=== PATIENT | female | born 1935 | race Caucasian/White ===

== ENCOUNTER 2020-08-20 06:55 | Outpatient (CLI) | payer MEDICARE, BC ==
--- NOTE | 2020-08-20 14:23 | RAD ---
EXAM: Two views chest PROVIDED CLINICAL HISTORY: Preoperative evaluation. COMPARISON: None FINDINGS: Cardiac silhouette and pulmonary vasculature are within normal limits. Linear bibasilar densities ar e seen which may represent atelectasis and/or scarring. Symmetric biapical pleural thickening is present which appears partially calcified. Lungs are otherwise clear. Mild elevation right hemidiaphr agm is present. Degenerative changes are seen in the spine. IMPRESSION: Linear bibasilar atelectasis and/or scarring. No acute cardiopulmonary process is identified..
[2020-08-20 15:10] LABS: #Eosinphils 0.1 10x3/uL (0.0-0.5); #Monocytes 0.6 10x3/uL (0.0-1.1); #Neutrophils 8.1 10x3/uL (1.5-8.4); %Basophils 0.3 % (0.0-2.0); %Eosinophils 0.8 % (0.0-6.0); %Lymphocytes 8.7 % (18.0-47.0); %Neutrophils 83.7 % (40.0-75.0); Hemoglobin 10.3 g/dL (12.0-16.0); Mean Corpuscular HGB CONC 32.2 G/DL (32.0-36.0); Mean Corpuscular Hemoglobin 28.9 PG (27.0-33.0); Mean Corpuscular Volume 89.9 fl (80.0-100.0); Mean Platelet Volume 9.1 fl (7.4-10.4); Platelet Count 460 10x3/uL (130-400); RBC Distribution Width 14.6 % (11.5-14.5); Red Blood Cell (RBC) Count 3.56 10x6/uL (3.90-5.20); White Blood Cell (WBC) Count 9.7 10x3/uL (4.5-11.0)
[2020-08-20 15:25] LABS: Anion Gap 18 mmol/L (10-20); BUN (Urea Nitrogen) 55 mg/dL (9.8-20.1); Calc. Creatinine Clearance 0 mL/min (70-130); Calcium 9.5 mg/dL (7.8-10.44); Carbon Dioxide 24 mmol/L (23-31); Chloride 92 mmol/L (98-107); Estimated GFR-MDRD 7; Glucose 94 mg/dL (83-110); Potassium 4.7 mmol/L (3.5-5.1); Sodium 129 mmol/L (136-145)
[2020-08-21 14:35] LABS: SARS-CoV-2 MS2 Positive; SARS-CoV-2 N Gene Negative; SARS-CoV-2 S Gene Negative; SARS-CoV-2 by NAA Not Detected (NotDetected); SARS-CoV-2 orf1ab Negative
== END 2020-08-20 06:56 | disposition home or self-care (01) ==
LOC: LABBT 06:55
PROVIDERS: ATTEND Surgery
DX: Z01.818 Encounter for other preprocedural examination (principal); Z20.828 Contact with and (suspected) exposure to other viral communicable diseases; N18.6 End stage renal disease
CPT/HCPCS: 71046; 80048; 85025; U0003; 87635

== ENCOUNTER 2022-02-10 10:39 | Inpatient (IN) | payer MEDICARE, BC ==
[~2022-02-10 10:39] MED LIST: Heparin 10,000 UNITS/ 10 ML VIAL ONE
[2022-02-10 11:23] LABS: Bacteria/HPF None Seen HPF (None Seen); Bilirubin Negative (Negative); Blood, Urine Trace (Negative); Clarity Clear (Clear); Glucose, Urine (Dipstick) Normal (Negative); Ketone, Urine Negative (Negative); Leukocyte Negative Leu/uL (Negative); Nitrite Negative (Negative); Protein, Urine (Dipstick) 100 mg/dL (Neg-Trace); Specific Gravity, Urine 1.011 (1.002-1.036); Squamous Epithelial None Seen HPF (0-3); Urobilinogen Normal mg/dL (Less than 2); pH, Urine 7.5 (5.0-9.0)
[2022-02-10 11:48] LABS: #Lymphocytes 0.3 thou/uL (1.20-3.40); #Monocytes 0.7 thou/uL (0.11-0.59); #Neutrophils 10.8 thou/uL (1.40-6.50); %Lymphocytes 2.2 % (21.0-51.0); %Monocytes 5.7 % (0.0-10.0); Hemoglobin 14.6 g/dL (12.0-16.0); Mean Corpuscular HGB CONC 32.3 g/dL (32.0-36.0); Mean Corpuscular Hemoglobin 32.3 pg (27.0-31.0); Mean Corpuscular Volume 99.9 fL (78.0-98.0); Mean Platelet Volume 6.6 fL (7.4-10.4); Platelet Count 166 thou/uL (130-400); RBC Distribution Width 13.1 % (11.5-14.5); Red Blood Cell (RBC) Count 4.53 mill/uL (4.20-5.40); White Blood Cell (WBC) Count 11.7 thou/uL (4.8-10.8)
[2022-02-10 12:13] LABS: ALT (SGPT) 9 U/L (8-55); AST (SGOT) 21 U/L (5-34); Albumin 4.1 g/dL (3.4-4.8); Alkaline Phosphatase 112 U/L (40-110); Anion Gap 19 mmol/L (10-20); BUN (Urea Nitrogen) 47 mg/dL (9.8-20.1); Bilirubin, Total 0.7 mg/dL (0.2-1.2); Calc. Creatinine Clearance 0 mL/min (70-130); Calcium 9.5 mg/dL (7.8-10.44); Carbon Dioxide 18 mmol/L (23-31); Chloride 99 mmol/L (98-107); Globulin 3.3 g/dL (2.4-3.5); Glucose 131 mg/dL (83-110); Lipase 37 U/L (8-78); Potassium 4.2 mmol/L (3.5-5.1); Protein, Total 7.4 g/dL (5.8-8.1); Sodium 132 mmol/L (136-145)
[2022-02-10] MEDS ORDERED: Morphine 4 MG/ML VIAL ONE ×2 (14:35→14:39)
[2022-02-10] MEDS ORDERED: Ondansetron PF 4 MG/2 ML Vial ONE ×2 (14:35→14:44)
[2022-02-10] MEDS ORDERED: Ketorolac Tromethamine 30 MG/ML VIAL ONE (14:38)
[2022-02-10] MEDS ORDERED: Acetaminophen 500 MG TAB ONE (14:40)
[2022-02-10] MEDS ORDERED: Acetaminophen 325 MG TAB PO PRN (15:27)
[2022-02-10] MEDS ORDERED: Acetaminophen/Codeine 30-300mg Tablet PO PRN (16:34)
[2022-02-10] MEDS ORDERED: Acetaminophen/Codeine 30-300mg Tablet PO SCH (16:45)
[2022-02-10] MEDS ORDERED: Propofol 1,000 MG/100 ML VIAL IV ONE (18:49)
[2022-02-10] MEDS: fentaNYL Citrate-0.9 % NaCl/PF 100 ML IV SCH (19:09)
[2022-02-10] MEDS ORDERED: Morphine 4 MG/ML VIAL SLOW IVP PRN (19:15)
[2022-02-10] MEDS ORDERED: Fentanyl BOLUS 250 ML IVPB PRN (19:15)
[2022-02-10] MEDS ORDERED: DISCONTINUE PREVIOUS NARCOTIC PAIN MEDICATIONS AND BENZODIAZEPINES FS SCH (19:15)
[2022-02-10] MEDS ORDERED: Propofol BOLUS 1,000 MG/100 ML VIAL IV PRN (19:15)
[2022-02-10] MEDS ORDERED: Propofol 1,000 MG/100 ML VIAL IV PRN (19:15)
[2022-02-10 19:21] LABS: ALT (SGPT) 322 U/L (8-55); AST (SGOT) 369 U/L (5-34); Albumin 3.4 g/dL (3.4-4.8); Alkaline Phosphatase 98 U/L (40-110); Anion Gap 21 mmol/L (10-20); BUN (Urea Nitrogen) 13 mg/dL (9.8-20.1); Bilirubin, Total 0.8 mg/dL (0.2-1.2); Calc. Creatinine Clearance 0 mL/min (70-130); Calcium 12.4 mg/dL (7.8-10.44); Carbon Dioxide 16 mmol/L (23-31); Chloride 104 mmol/L (98-107); Globulin 2.4 g/dL (2.4-3.5); Glucose 265 mg/dL (83-110); Potassium 3.7 mmol/L (3.5-5.1); Protein, Total 5.8 g/dL (5.8-8.1); Sodium 137 mmol/L (136-145)
[2022-02-10 19:27] LABS: Anisocytosis SLIGHT = 6-15 cells (100X) (0-5/hpf); Band 19 % (5-11); Hemoglobin 12.1 g/dL (12.0-16.0); Lymphocytes 12 % (21-51); MDiff Complete? YES; Mean Corpuscular HGB CONC 31.6 g/dL (32.0-36.0); Mean Corpuscular Hemoglobin 31.9 pg (27.0-31.0); Mean Platelet Volume 7.1 fL (7.4-10.4); Monocytes 5 % (0-10); Neutrophil 64 % (42-75); Platelet Count 239 thou/uL (130-400); RBC Distribution Width 13.1 % (11.5-14.5); Red Blood Cell (RBC) Count 3.78 mill/uL (4.20-5.40); White Blood Cell (WBC) Count 29.6 thou/uL (4.8-10.8)
[2022-02-10 19:28] LABS: Troponin I 2.035 ng/mL (< 0.028)
[2022-02-10 19:32] LABS: Actual Bicarbonate (HCO3a) 15.3 mEq/L (22-28); Base Excess (BEa) -8.3 mEq/L (-2.0 to +3.0); CO2 Tension 26.5 mmHg (35.0-45.0); Calcium, Ionized (arterial) 1.25 mmol/L (1.12-1.30); Carboxyhemoglobin (COHb) 0.3 gm% (0.0-3.0); Hemoglobin (Hb) 12.1 g/dL (12.0-16.0); O2 Tension (PaO2), arterial 134.1 mmHg (> 60.0); Potassium - ABG Lab 3.41 mmol/L (3.70-5.30); pH, Arterial 7.38 (7.35-7.45)
[2022-02-10 19:44] LABS: ALV-art Gradient 545.775 mmHg (0-20); Puncture Site LRA
[2022-02-10 19:50] LABS: Magnesium 2.3 mg/dL (1.6-2.6); Phosphorus 4.5 mg/dL (2.3-4.7)
[2022-02-10 20:12] VITALS: BMI 23.8
[2022-02-10] MEDS ORDERED: Magnesium 2 GM/50 ML(in water) 2 GM in Premix Bag 1 BAG IVPB SCH (20:45)
[2022-02-10] MEDS ORDERED: Aspirin 325 MG TAB PO SCH (20:45)
[2022-02-10] MEDS ORDERED: BUPRENORPHINE 5 MCG TD SCH (21:00)
[2022-02-10] MEDS ORDERED: Amiodarone 150 MG, Admixture Fee 1 EACH in Dextrose 5% in Water 100 ML IVPB SCH (21:30)
[2022-02-10] MEDS: Amiodarone 450 MG in Dextrose 5% in Water 250 ML IVPB SCH (21:46)
[2022-02-10 21:47] LABS: Troponin I 2.562 ng/mL (< 0.028)
[2022-02-10 21:48] LABS: ALT (SGPT) 395 U/L (8-55); AST (SGOT) 518 U/L (5-34); Alkaline Phosphatase 107 U/L (40-110); Anion Gap 19 mmol/L (10-20); BUN (Urea Nitrogen) 22 mg/dL (9.8-20.1); Calc. Creatinine Clearance 13 mL/min (70-130); Calcium 9.9 mg/dL (7.8-10.44); Carbon Dioxide 22 mmol/L (23-31); Chloride 100 mmol/L (98-107); Globulin 3.2 g/dL (2.4-3.5); Glucose 199 mg/dL (83-110); Magnesium 1.9 mg/dL (1.6-2.6); Phosphorus 3.5 mg/dL (2.3-4.7); Potassium 3.9 mmol/L (3.5-5.1); Protein, Total 7.2 g/dL (5.8-8.1); Sodium 137 mmol/L (136-145)
[2022-02-10] MEDS ORDERED: Heparin 10,000 UNITS/ 10 ML VIAL SLOW IVP SCH (23:30)
[2022-02-10] MEDS ORDERED: Heparin 25,000 units/D5W 500 ML IVPB SCH (23:30)
[2022-02-11 00:23] LABS: Hemoglobin 12.8 g/dL (12.0-16.0); Platelet Count 195 thou/uL (130-400)
[2022-02-11 00:45] LABS: Troponin I 3.913 ng/mL (< 0.028)
[2022-02-11] MEDS ORDERED: Nitroglycerin 50 MG/250 ML BOT 250 ML IVPB SCH (02:45)
[2022-02-11 07:19] LABS: Albumin 3.3 g/dL (3.4-4.8)
[2022-02-11 07:20] LABS: Chloride 98 mmol/L (98-107); Potassium 4.8 mmol/L (3.5-5.1); Sodium 132 mmol/L (136-145)
[2022-02-11 07:21] LABS: Glucose 269 mg/dL (83-110)
[2022-02-11 07:22] LABS: Anion Gap 20 mmol/L (10-20); Carbon Dioxide 19 mmol/L (23-31); Globulin 3.2 g/dL (2.4-3.5); Protein, Total 6.5 g/dL (5.8-8.1)
[2022-02-11 07:23] LABS: Bilirubin, Total 0.6 mg/dL (0.2-1.2)
[2022-02-11 07:24] LABS: Actual Bicarbonate (HCO3a) 19.9 mEq/L (22-28); Base Excess (BEa) -2.2 mEq/L (-2.0 to +3.0); CO2 Tension 26.8 mmHg (35.0-45.0); Calcium, Ionized (arterial) 1.16 mmol/L (1.12-1.30); Carboxyhemoglobin (COHb) 0.5 gm% (0.0-3.0); O2 Tension (PaO2), arterial 98.8 mmHg (> 60.0); Potassium - ABG Lab 4.08 mmol/L (3.70-5.30); pH, Arterial 7.49 (7.35-7.45)
[2022-02-11 07:24] LABS: Alkaline Phosphatase 83 U/L (40-110); Calc. Creatinine Clearance 10 mL/min (70-130)
[2022-02-11 07:25] LABS: BUN (Urea Nitrogen) 25 mg/dL (9.8-20.1)
[2022-02-11 07:25] LABS: Puncture Site LRA
[2022-02-11 07:26] LABS: AST (SGOT) 263 U/L (5-34)
[2022-02-11 07:27] LABS: ALT (SGPT) 268 U/L (8-55); Magnesium 2.6 mg/dL (1.6-2.6)
[2022-02-11 07:40] LABS: Band 29 % (5-11); Hemoglobin 11.6 g/dL (12.0-16.0); Lymphocytes 2 % (21-51); MDiff Complete? YES; Macrocytosis MODERATE=16-30 cells (100X) (0-5/hpf); Mean Corpuscular HGB CONC 32.3 g/dL (32.0-36.0); Mean Corpuscular Hemoglobin 32.7 pg (27.0-31.0); Mean Platelet Volume 7.2 fL (7.4-10.4); Metamyelocyte 6 % (0-0); Monocytes 4 % (0-10); Neutrophil 59 % (42-75); Platelet Count 179 thou/uL (130-400); Platelet Morphology Comment Appears Adequate; RBC Distribution Width 13.1 % (11.5-14.5); Red Blood Cell (RBC) Count 3.53 mill/uL (4.20-5.40)
[2022-02-11] MEDS: Pantoprazole 40 MG VIAL IVP SCH ×2 (09:04→09:06)
[2022-02-11] MEDS: Amiodarone 450 MG in Dextrose 5% in Water 250 ML IVPB SCH ×2 (09:35→23:09)
[2022-02-11] MEDS ORDERED: EPINEPHrine 1 MG/10 ML Abboject SYRINGE ONE (10:30)
[2022-02-11] MEDS ORDERED: Magnesium Sulfate In Water 4 GM in Premix Bag 1 BAG IVPB SCH (11:00)
[2022-02-11] MEDS ORDERED: Magnesium 2 GM/50 ML(in water) 2 GM in Premix Bag 1 BAG IVPB SCH (11:15)
[2022-02-11 12:18] LABS: SARS-CoV-2 PCR by NAA Not Detected (NotDetected)
[2022-02-11] MEDS ORDERED: Amiodarone 200 MG TAB PER TUBE SCH (13:45)
[2022-02-11] MEDS: fentaNYL Citrate-0.9 % NaCl/PF 100 ML IV SCH (14:48)
[2022-02-11] MEDS: Amiodarone 200 MG TAB PER TUBE SCH (20:31)
[2022-02-11] MEDS: Acetaminophen 325 MG TAB PER TUBE PRN (21:17)
[2022-02-12 04:25] LABS: #Lymphocytes 0.6 thou/uL (1.20-3.40); #Neutrophils 7.7 thou/uL (1.40-6.50); %Basophils 0.3 % (0.0-1.0); %Eosinophils 0.1 % (0.0-10.0); %Lymphocytes 6.7 % (21.0-51.0); %Neutrophils 81.9 % (42.0-75.0); Hemoglobin 11.4 g/dL (12.0-16.0); Mean Corpuscular HGB CONC 31.7 g/dL (32.0-36.0); Mean Corpuscular Hemoglobin 32.9 pg (27.0-31.0); Mean Platelet Volume 8.3 fL (7.4-10.4); Platelet Count 139 thou/uL (130-400); RBC Distribution Width 13.4 % (11.5-14.5); Red Blood Cell (RBC) Count 3.47 mill/uL (4.20-5.40); White Blood Cell (WBC) Count 9.4 thou/uL (4.8-10.8)
[2022-02-12 04:49] LABS: Critical Call Chem Troponin I RESULT DECREASING; Troponin I 1.754 ng/mL (< 0.028)
[2022-02-12] MEDS: Lorazepam 2 MG/ML VIAL SLOW IVP PRN ×2 (07:53→15:30)
[2022-02-12] MEDS: fentaNYL Citrate-0.9 % NaCl/PF 100 ML IV SCH (08:12)
[2022-02-12] MEDS ORDERED: Heparin 10,000 UNITS/ 10 ML VIAL ONE (08:42)
[2022-02-12] MEDS: Pantoprazole 40 MG VIAL IVP SCH (08:57)
[2022-02-12] MEDS: Amiodarone 200 MG TAB PER TUBE SCH (08:57)
[2022-02-12] MEDS: Acetaminophen 325 MG TAB PER TUBE PRN (11:56)
[2022-02-12 14:12] VITALS: BP 109/50
[2022-02-12 15:58] LABS: Hemoglobin 11.6 g/dL (12.0-16.0); Mean Corpuscular HGB CONC 32.1 g/dL (32.0-36.0); Mean Corpuscular Hemoglobin 32.3 pg (27.0-31.0); Mean Platelet Volume 7.3 fL (7.4-10.4); Platelet Count 140 thou/uL (130-400); RBC Distribution Width 13.2 % (11.5-14.5); Red Blood Cell (RBC) Count 3.61 mill/uL (4.20-5.40); White Blood Cell (WBC) Count 2.2 thou/uL (4.8-10.8)
[2022-02-12 16:12] LABS: Band 21 % (5-11); Eosinophils 1 % (0-10); Lymphocytes 11 % (21-51); MDiff Complete? YES; Macrocytosis SLIGHT = 6-15 cells (100X) (0-5/hpf); Metamyelocyte 3 % (0-0); Monocytes 4 % (0-10); Neutrophil 59 % (42-75); Platelet Morphology Comment Appears Adequate; Polychromasia SLIGHT = 2-3 cells (100X) (0-2/hpf); Reactive Lymphocytes 1 % (0-10)
[2022-02-12 16:42] VITALS: TEMP 98.7
[2022-02-12] MEDS ORDERED: Morphine 4 MG/ML VIAL SLOW IVP PRN (17:36)
[2022-02-12] MEDS ORDERED: Lorazepam 2 MG/ML VIAL SLOW IVP PRN (17:37)
== END 2022-02-12 18:02 | disposition expired ==
LOC: ERS 10:39 → T4-B 14:42 → CCU 18:41 → OBSVTOIN 18:45 → CCU 02-12 13:25
PROVIDERS: ADMIT Student in an Organized Health Care Education/Training Program; ATTEND Student in an Organized Health Care Education/Training Program
PROC: 5A12012 Performance of Cardiac Output, Single, Manual (ICD-10-PCS; principal; 2022-02-10)
PROC: 0BH18EZ Insertion of Endotracheal Airway into Trachea, Via Natural or Artificial Opening Endoscopic (ICD-10-PCS; 2022-02-10)
PROC: 5A1D70Z Performance of Urinary Filtration, Intermittent, Less than 6 Hours Per Day (ICD-10-PCS; 2022-02-12)
DX: I21.4 Non-ST elevation (NSTEMI) myocardial infarction (principal); N18.6 End stage renal disease; J96.00 Acute respiratory failure, unspecified whether with hypoxia or hypercapnia; Z51.5 Encounter for palliative care; Z66 Do not resuscitate; I47.2 Ventricular tachycardia; Z20.822 Contact with and (suspected) exposure to COVID-19; D63.1 Anemia in chronic kidney disease; E03.9 Hypothyroidism, unspecified; G62.9 Polyneuropathy, unspecified; R94.31 Abnormal electrocardiogram [ECG] [EKG]; G89.29 Other chronic pain; I46.8 Cardiac arrest due to other underlying condition; Z99.2 Dependence on renal dialysis; Z90.710 Acquired absence of both cervix and uterus; Z90.89 Acquired absence of other organs; Z86.69 Personal history of other diseases of the nervous system and sense organs; Z87.891 Personal history of nicotine dependence
CPT/HCPCS: 36415; 36416; 36600; 71045; 74177; 80053; 81003; 81015; 82805; 83605; 83690; 83735; 84100; 84443; 84484; 85025; 85730; 90935; 93005; 93010; 94002; 94003; 96374; C9113; G0257; G0378; J0282; J1644; J1885; J2060; J2270; J2405; J2704; J3475; J7070; U0003; U0005